=== PATIENT | male | born 1975 | race Caucasian/White ===

== ENCOUNTER 2019-05-01 10:27 | Emergency (ER) | payer SELFPAY ==
[~2019-05-01] VITALS: Ht 180.3 cm; Wt 117.5 kg
[2019-05-01 10:31] VITALS: BP 160/74
--- NOTE | 2019-05-01 10:38 | NUR ---
PT AMBULATED TO ER BED 3
--- NOTE | 2019-05-01 10:41 | NUR ---
43/M BIB SELF C/O LEFT EYE SHARP PAIN, REDNESS & WATERY X 2 DAYS. possible fb to os s/p working under his car this weekend. os 20/20 -2, od 20/20, ou 20/20. PATIENT STATES PAIN OF 10/10 AT THIS TIME; PATIENT POSITIONED FOR COMFORT; HOB ELEVATED; BEDRAILS UP X1; BED DOWN. ER MD MADE AWARE OF PT STATUS.
[2019-05-01] MEDS ORDERED: TETRACAINE HCL/PF 0.5% OPTH 4 ML BTL OP ONE (11:20)
[2019-05-01] MEDS ORDERED: FLUORESCEIN OPTH STRIP 0.6 MG OP ONE (11:20)
--- NOTE | 2019-05-01 11:34 | NUR ---
ER AT BEDSIDE
[2019-05-01 11:45] VITALS: BP 156/68
--- NOTE | 2019-05-01 11:55 | NUR ---
Patient discharged with v/s stable. Written and verbal after care instructions given and explained. Patient alert, oriented and verbalized understanding of instructions. Ambulatory with steady gait. All questions addressed prior to discharge. ID band removed. Patient advised to follow up with PMD. Rx of ACULAR,SULFACETAMIDE given. Patient educated on indication of medication including possible reaction and side effects. Opportunity to ask questions provided and answered.
== END 2019-05-01 11:55 | disposition home or self-care (01) ==
LOC: MED 10:27
DX: T15.02XA Foreign body in cornea, left eye, initial encounter (principal); Y92.89 Other specified places as the place of occurrence of the external cause
CPT/HCPCS: 99283